=== PATIENT | female | born 1950 | race Caucasian/White ===

== ENCOUNTER 2024-05-10 08:30 | Outpatient (CLI) | payer MEDICARE, OTHER | END 2024-05-10 08:31 | disposition home or self-care (01) | LOC: CSHWCC 08:30 | PROVIDERS: ATTEND Nurse Practitioner Family | DX: I87.311 Chronic venous hypertension (idiopathic) with ulcer of right lower extremity (principal); E11.622 Type 2 diabetes mellitus with other skin ulcer; L97.212 Non-pressure chronic ulcer of right calf with fat layer exposed | CPT/HCPCS: 99215; G0463 ==

== ENCOUNTER 2024-05-17 15:57 | Outpatient (CLI) | payer MEDICARE, OTHER | END 2024-05-17 15:58 | disposition home or self-care (01) | LOC: CSHWCC 15:57 | PROVIDERS: ATTEND Nurse Practitioner Family | DX: I87.311 Chronic venous hypertension (idiopathic) with ulcer of right lower extremity (principal); E11.622 Type 2 diabetes mellitus with other skin ulcer; L97.212 Non-pressure chronic ulcer of right calf with fat layer exposed | CPT/HCPCS: 11042 ==

== ENCOUNTER 2024-05-24 12:58 | Outpatient (CLI) | payer MEDICARE, OTHER | END 2024-05-24 12:59 | disposition home or self-care (01) | LOC: CSHWCC 12:58 | PROVIDERS: ATTEND Nurse Practitioner Family | DX: I87.323 Chronic venous hypertension (idiopathic) with inflammation of bilateral lower extremity (principal); E11.622 Type 2 diabetes mellitus with other skin ulcer; L97.212 Non-pressure chronic ulcer of right calf with fat layer exposed; L97.222 Non-pressure chronic ulcer of left calf with fat layer exposed | CPT/HCPCS: 11042 ==

== ENCOUNTER 2024-05-30 10:20 | Outpatient (CLI) | payer MEDICARE, OTHER | END 2024-05-30 10:21 | disposition home or self-care (01) | LOC: CSHWCC 10:20 | PROVIDERS: ATTEND Nurse Practitioner Family | DX: I87.323 Chronic venous hypertension (idiopathic) with inflammation of bilateral lower extremity (principal); E11.622 Type 2 diabetes mellitus with other skin ulcer; L97.212 Non-pressure chronic ulcer of right calf with fat layer exposed; L97.222 Non-pressure chronic ulcer of left calf with fat layer exposed | CPT/HCPCS: 11042; 87070; 87205 ==

== ENCOUNTER 2024-06-06 11:15 | Outpatient (CLI) | payer MEDICARE, OTHER | END 2024-06-06 11:16 | disposition home or self-care (01) | LOC: CSHWCC 11:15 | PROVIDERS: ATTEND Nurse Practitioner Family | DX: I87.323 Chronic venous hypertension (idiopathic) with inflammation of bilateral lower extremity (principal); E11.622 Type 2 diabetes mellitus with other skin ulcer; L97.222 Non-pressure chronic ulcer of left calf with fat layer exposed | CPT/HCPCS: 11042 ==